=== PATIENT | male | born 1940 | race Caucasian/White ===

== ENCOUNTER → 2024-10-23 16:19 | Emergency (ER) | payer SELFPAY ==
[2024-10-23 16:23] VITALS: BP 74/54
[2024-10-23 16:45] VITALS: BP 81/58
[2024-10-23 17:01] VITALS: BP 102/60
[2024-10-23] MEDS: NSS 1000 IV (17:01)
[2024-10-23 17:10] LABS: Hematocrit 42.7 % (39.0-52.0); Hemoglobin 14.4 g/dL (13.0-18.0); Mean Corp Hgb Conc. 33.7 g/dL (33.0-37.0); Mean Corpuscular Volume 93.6 fL (80.0-94.0); Nucleated Red Blood Cells % 0 % (-); Platelet Count 246 10^3/uL (130-400); Red Cell Dist. Width 13.2 % (11.5-14.5)
[2024-10-23] MEDS: NSS 500 IV (17:24)
[2024-10-23 17:36] LABS: ALT (SGPT) 18 U/L (0-50); AST (SGOT) 17 U/L (17-59); Albumin 4.6 g/dl (3.5-5.0); Alkaline Phosphatase 54 U/L (38-126); Blood Urea Nitrogen 38 mg/dl (9-20); Calcium 9.7 mg/dl (8.4-10.2); Carbon Dioxide 23 mmol/L (22-30); Chloride 109 mmol/L (98-107); Glucose 187 mg/dl (70-99); Magnesium 1.7 mg/dl (1.6-2.3); Potassium 5.3 mmol/L (3.5-5.1); Sodium 140 mmol/L (135-145); Total Protein 7.0 g/dl (6.3-8.2); eGFR 30.85
[2024-10-23 17:46] LABS: Troponin I 0.013 ng/ml
[2024-10-23 18:24] VITALS: BP 102/58; BP 104/90; BP 105/59; PULSE 80; PULSE 83
[2024-10-23 18:26] LABS: TSH 1.93 uIU/ml (0.47-4.68)
--- NOTE | 2024-10-23 18:32 | ED.GENMED ---
History of Present Illness
General
Chief Complaint: Heart Rate Problem
Source: patient
Exam Limitations: none
Time Seen by Provider: 10/23/24 16:50
Nursing documentation reviewed up to this point in time: agreed with
History of Present Illness
History of Present Illness:
Patient presents to ED secondary to sudden onset of blurry vision along with tingling sensation in his hands and feet, while he was at home. Denies headache. Denies dizziness. Denies chest pain or palpitations. Denies shortness of breath.
Denies nausea or vomiting. Patient reports having had similar symptoms at home 2 weeks ago, which resolved spontaneously, and was never evaluated by his physician. Denies recent illness. Denies recent change in medications or diet. Of note,
patient states that he has not been eating as well and not drinking of water. In fact today, patient has only had breakfast with coffee.
Review of Systems
Review of Systems
Allergies reviewed?: Yes
All Other Systems: ROS reviewed and negative except as documented in HPI and ROS
Constitutional: Reports no symptoms
Respiratory: Reports no symptoms
Cardiac: Reports no symptoms
ABD/GI: Reports no symptoms
Musculoskeletal: Reports no symptoms
Skin: Reports no symptoms
Neurological: Reports other (Blurred vision with tingling sensation)
Phy Exam
Physical Exam
Physical Exam:
Physical Exam
General: mild distress, not acutely ill. afebrile. tachycardic
Head: nc/at. eomi
Neck: supple. no meningeal signs. no jvd
Heart: tachycardic without murmur.
Lungs: no acute respiratory distress. clear bilaterally
Abdomen: normal bowel sounds. not tender.
Neuro: alert and oriented x 3. no focal neurological deficits
Skin: no rash
Psychiatric: well kept. interactive and cooperative
Extremities: no edema. no calf tenderness
Course
Orders/Labs/Results
Orders:
Orders
10/23/24
Electrocardiogram (*1) Stat
Comment: DONE EMR
10/23/24 16:29
EKG [Electrocardiogram (*1)] Urgent
Reason for Study: Tachycardia
EKG- Treatment ONCE
10/23/24 16:47
Adenosine [Adenocard] 6 mg .ROUTE .STK-MED ONE
10/23/24 16:51
0.9% Sodium Chloride 1000 ml [Nss] 1,000 ml IV BOLUS
10/23/24 17:00
Complete Blood Count/With Diff Urgent
Comprehensive Metabolic Panel Urgent
Magnesium Urgent
TSH Urgent
Troponin I Urgent
10/23/24 17:18
0.9% Sodium Chloride 500 ml [Nss] 500 ml IV BOLUS
Abnormal Lab Results
10/23/24
17:00
RBC 4.56 L 10^6/uL
(4.70-6.10)
MCH 31.6 H pg
(27.0-31.0)
Abs Immat Gran (auto) 0.1 H 10^3/uL
(0-0.05)
Absolute Neuts (auto) 6.6 H 10^3/uL
(1.4-6.5)
Absolute Monos (auto) 1.2 H 10^3/uL
(0.1-0.6)
Monocytes % 11.1 H %
(1.7-9.3)
Potassium 5.3 H mmol/L
(3.5-5.1)
Chloride 109 H mmol/L
(98-107)
BUN 38 H mg/dl
(9-20)
Creatinine 2.1 H mg/dL
(0.7-1.3)
Glucose 187 H mg/dl
(70-99)
10/23/24 17:00
10/23/24 17:00
Vital Signs
Initial and Last Documented VS:
Initial Vital Signs
Temp Pulse Resp BP Pulse Ox
97.5 F 169 18 74/54 98
10/23/24 16:23 10/23/24 16:23 10/23/24 16:23 10/23/24 16:23 10/23/24 16:23
Last Documented Vital Signs
Temp Pulse Resp BP Pulse Ox
97.5 F 85 26 102/60 97
10/23/24 17:00 10/23/24 17:01 10/23/24 17:01 10/23/24 17:01 10/23/24 18:39
MDM/Problems Addressed
MDM/Problems Addressed:
Upon arrival, patient found to be in SVT with hypotension. Patient started IV fluids and with Valsalva maneuver, resulting in gradual slowing down of the heart rate. Repeat EKG shows normal sinus rhythm. With slowing down the heart rate, patient
reports complete resolution of presenting symptoms, i.e. blurry vision and tingling sensation.
Blood work reviewed and discussed with patient, including acute renal failure, likely secondary to dehydration. Advised to continue hydration at home along with PCP follow-up, including repeat blood work in 1 to 2 weeks. In addition, secondary to
SVT, which has occurred for the second time in 2 weeks, patient will be advised to contact his online marketing director for reevaluation.
Patient given IV fluids and tested afterwards, including orthostatic vital signs and ambulation, without any symptoms. As such, patient will be discharged home at this time, to the care of his , with recommendation to continue hydration and
follow-up with his physicians. Patient expresses understanding at time of discharge.
Critical care statement: A total of 40 minutes of critical care time was provided for this patient. This includes management of unstable vital signs, evaluation of the patient at bedside, reviewing the patient's pertinent medical records, review of
old EKGs and review of pertinent medical records. This time with separate from time utilized to perform the aforementioned documented procedures
*Pulse Oximetry
SaO2: 97
Oxygen Mode of Delivery: Room air
Patient hypoxic: no
*Critical Care Note
Total Time (30-74mins, 75-104mins- exclusive of procedures): 40 min
ED Attending Note
-
Portions of this chart may have been created with voice recognition software.� Occasional wrong word or��sound alike� substitutions may have occurred due to the inherent limitations of voice recognition software.
Discharge Plan
Departure
Patient Disposition: Home (Routine Discharge)
Date of Disposition: 10/23/24
Time of Disposition: 18:37
Patient with high blood pressure during this ER visit?: No
Condition: Fair
Discharge Problem:
SVT (supraventricular tachycardia), Acute renal failure
Instructions: Acute kidney injury, Supraventricular tachycardia (SVT)
Activity Restrictions/Additional Instructions:
As discussed, please follow-up with your primary care physician and online marketing director for further evaluation and treatment, including repeat blood work in 1 to 2 weeks. In the meantime, recommend increase oral intake and hydration. Please consider
return to ED with recurrent symptoms.
Interventions
Interventions:
*Risk Screen - Suicide Last Done: 10/23/24 16:23
*General Assessment Last Done: 10/23/24 16:23
*Neglect/Abuse Screening Last Done: 10/23/24 17:18
*ED- Fall Risk Assessment Last Done: 10/23/24 18:55
*ED COVID-19 Vaccine History Last Done: 10/23/24 16:23
*Nursing Disposition Last Done: 10/23/24 18:55
ED- Pulmonary Assessment Last Done: 10/23/24 17:18
ED- Cardiac Assessment Last Done: 10/23/24 17:18
Discharge Date and Time
Print Language: BELIZEAN
== END | disposition home or self-care (01) ==
LOC: EMR 16:19
PROVIDERS: EMERGENCY PHYSICIAN Emergency Medicine
DX: I47.10 Supraventricular tachycardia, unspecified (principal); N17.9 Acute kidney failure, unspecified
CPT/HCPCS: 99291; 96360; 80053; 83735; 84443; 84484; 85025; 93005; J0153